=== PATIENT | female | born 1945 | race Caucasian/White ===

== ENCOUNTER → 2016-09-30 | Outpatient (CLI) | payer BC ==
[~2016-09-30] MED LIST: ASPEC325 PO; ATOR-22 PO; DILT180C47 PO; FURO-85 PO; HYDR-5688 PO; LEVO75TA PO; LISI-729 PO; METF500T PO
--- NOTE | 2016-09-30 08:49 | DIAGNOSTIC IMAGING REPORT ---
CHEST 2 VIEWS ROUTINE CLINICAL HISTORY: Preoperative evaluation. COMPARISON STUDY: No previous studies for comparison. FINDINGS: Lung volumes are normal. Lungs are clear. No pneumothorax or pleural effusion is present. Pulmonary vascularity is normal. Cardiomediastinal silhouette is normal. A 1.3 cm peripherally calcified left upper quadrant abnormality is noted. IMPRESSION: 1. No acute cardiopulmonary findings. 2. 1.3 cm peripheral calcified abnormality within the left upper quadrant of the abdomen. This could reflect a small splenic artery aneurysm or calcified splenic lesion. Electronically signed by: Mariano Francois M.D. 09/30/2016 8:48 AM Dictated Date/Time: 09/30/2016 8:39 AM
[2016-09-30 09:36] LABS: BASO % 0.6 %; BASO ABS # 0.04 K/uL (0-0.2); COMPLETE YES; EOS % 2.5 %; HEMATOCRIT 37.5 % (37-47); IG% 0.1 %; LYMPH % 22.9 %; LYMPH ABS # 1.63 K/uL (1.2-3.4); MEAN CELL VOLUME 91.7 fL (80-100); MEAN CORPUSCULAR HEMOGLOBIN 30.8 pg (25-34); MEAN CORPUSCULAR HGB CONC 33.6 g/dl (32-36); MEAN PLATELET VOLUME 10.9 fL (7.4-10.4); MONO % 11.7 %; NEUT % 62.2 %; PLATELET COUNT 279 K/uL (130-400); RED BLOOD COUNT 4.09 M/uL (4.2-5.4); WHITE BLOOD COUNT 7.11 K/uL (4.8-10.8)
[2016-09-30 09:45] LABS: PARTIAL THROMBOPLASTIN RATIO 1.3; PROTHROMBIN TIME (PATIENT) 10.6 SECONDS (9.0-12.0)
[2016-09-30 09:49] LABS: BLOOD UREA NITROGEN 15 mg/dl (7-18); BUN/CREATININE RATIO 18.6 (10-20); CARBON DIOXIDE 26 mmol/L (21-32); CHLORIDE 106 mmol/L (98-107); CREATININE 0.81 mg/dl (0.60-1.20); GLUCOSE 137 mg/dl (70-99); POTASSIUM 4.3 mmol/L (3.5-5.1); SODIUM 137 mmol/L (136-145)
[2016-09-30 09:53] LABS: ESTIMATED AVERAGE GLUCOSE 137 mg/dl; HA1C FLAG Normal (Normal)
[2016-09-30 10:00] LABS: CHOLESTEROL 139 mg/dl (0-200); CHOLESTEROL/HDL RATIO 2.1; HDL CHOLESTEROL 67 mg/dl; LDL CHOLESTEROL CALCULATED 48 mg/dl; TRIGLYCERIDES 122 mg/dl (0-150); VERY LOW DENSITY LIPOPROT CALC 24 mg/dl
== END | disposition home or self-care (01) ==
LOC: C.LAB 07:58
PROVIDERS: ATTEND Orthopaedic Surgery
DX: S72.142D Displaced intertrochanteric fracture of left femur, subsequent encounter for closed fracture with routine healing (principal); X58.XXXA Exposure to other specified factors, initial encounter; E78.00 Pure hypercholesterolemia, unspecified; E88.81 Metabolic syndrome and other insulin resistance; E11.9 Type 2 diabetes mellitus without complications; I10 Essential (primary) hypertension; E03.9 Hypothyroidism, unspecified; Z01.818 Encounter for other preprocedural examination

== ENCOUNTER → 2016-10-13 | Outpatient (CLI) | payer BC ==
[~2016-10-13] MED LIST changes: +BACITRACIN 50000 UNIT VIAL ONE; +ORTHO JOINT ANESTHETIC ONE
[2016-10-13 12:12] LABS: URINE APPEARANCE CLEAR (CLEAR); URINE BILIRUBIN NEG (NEG); URINE COLOR YELLOW; URINE NITRITE NEG (NEG); URINE SPECIFIC GRAVITY 1.023 (1.000-1.030); UROBILINOGEN NEG (NEG)
[2016-10-13 12:23] LABS: MANUAL MICROSCOPIC REQUIRED? NO; REVIEW REQ? NO
== END | disposition home or self-care (01) ==
LOC: C.RAD 11:11
PROVIDERS: ATTEND Orthopaedic Surgery
DX: Z01.812 Encounter for preprocedural laboratory examination (principal); S72.142D Displaced intertrochanteric fracture of left femur, subsequent encounter for closed fracture with routine healing; X58.XXXD Exposure to other specified factors, subsequent encounter

== ENCOUNTER → 2016-10-18 | Outpatient (CLI) | payer BC ==
[~2016-10-18] MED LIST changes: -BACITRACIN 50000 UNIT VIAL ONE; -ORTHO JOINT ANESTHETIC ONE
== END | disposition home or self-care (01) ==
LOC: C.LABBC 09:27
PROVIDERS: ATTEND Orthopaedic Surgery
DX: S72.142K Displaced intertrochanteric fracture of left femur, subsequent encounter for closed fracture with nonunion (principal); X58.XXXS Exposure to other specified factors, sequela

== ENCOUNTER 2016-10-22 10:34 | Inpatient (IN) | payer BC, OTHER ==
[2016-10-20 07:35] VITALS: BMI 25.0
--- NOTE | 2016-10-21 20:59 | HISTORY & PHYSICAL EXAMINATION ---
DATE OF ADMISSION: 10/22/2016 HISTORY AND PHYSICAL ADMISSION NOTE CHIEF COMPLAINT: Failed intramedullary nail fixation of the left hip. HISTORY OF PRESENT ILLNESS: Juany is a pleasant 71-year-old female who fell off a horse fell down at [place] in June. She underwent an intramedullary nail fixation of her left hip while in [place]. She came back to [place] for followup and unfortunately, her hip is not doing well. 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 She has been very painful and is having difficulty ambulating. She has elected to proceed with an IM nail removal and conversion to a hemiarthroplasty. PAST MEDICAL HISTORY: Significant for diabetes, hyperlipidemia, hypertension and hypothyroidism. MEDICATIONS: Include lisinopril, atorvastatin, diltiazem, Lasix, Synthroid, and metformin. ALLERGIES: None. FAMILY HISTORY: Noncontributory. SOCIAL HISTORY: She has a domestic partner and has 1-2 drinks a week and is very active. REVIEW OF SYSTEMS: She complains of left hip pain. All other pertinent review of systems is negative. PHYSICAL EXAMINATION: GENERAL: She is awake, alert and orient x3. She is in no apparent distress. She is very pleasant. HEENT: Pupils are equal, round and reactive to light. Extraocular movements intact. Oral mucosa is pink and moist. HEART: Regular rate per radial pulse. LUNGS: Lacie symmetrically bilaterally with no audible breath sounds. ABDOMEN: Soft, nontender, nondistended. MUSCULOSKELETAL: On physical examination of her left hip, she has a significantly shortened left leg compared to her contralateral side. She walks with an antalgic gait. She is stiff and painful with any range of motion of her hip. She is neurovascularly intact. X-RAYS: From the previous visit show a basicervical femoral neck fracture with intramedullary nail fixation with a lag screw and a derotational screw. Unfortunately, there has been collapse and nonunion at the fracture. There is also evidence of an old femoral shaft fracture that has been well healed. IMPRESSION: Failure intramedullary nail fixation of a left proximal femur. PLAN: We will proceed with a removal intramedullary nail and conversion to a left hip hemiarthroplasty. Postoperatively, she will be started on aspirin for DVT prophylaxis and admitted to the general orthopedic floors. Sed rate and CRP has already been done and ruled out infection. MTDD
[~2016-10-22] VITALS: Ht 152.4 cm; Wt 59.1 kg
[2016-10-22] VITALS (7 sets, daily range): BP systolic 104–148; BP diastolic 56–69; PULSE 52–66; TEMP 36.2–37.3; O2SAT 95–100; Ht 152.4 cm; Wt 59.1 kg
[~2016-10-22 10:34] MED LIST changes: +ACETAMINOPHEN 500 MG TAB PO SCH; -ASPEC325 PO; +ATROPINE SULFATE 0.1 MG/ML 5ML SYR IV PRN; +BUPIVACAINE 0.5 % 5 MG/1 ML PF 10ML VIAL ONE; +CEFAZOLIN 2000 MG/60 ML D5W 60 ML IV SCH; +EpHEDrine SULFATE INJ 50 MG/ML AMP IV PRN; +FAMOTIDINE 20 MG TAB PO SCH; +FENTANYL CITRATE INJ 50 MCG/1 ML 2 ML VIAL IV PRN; +GABAPENTIN 300 MG CAP PO SCH; -HYDR-5688 PO; +LACTATED RINGER'S 1000ML 1,000 ML IV SCH; +LACTATED RINGER'S 1000ML 500 ML IV ONE; +ONDANSETRON INJ 2 MG/ML 2 ML VIAL IV PRN; +ROPIVACAINE 5MG/ML 30 ML 150 MG, BUPIVACAINE/EPINEPHR 0.5% MPF 30 ML, KETOROLAC TROMETH... INFIL SCH; +TRANEXAMIC ACID INJ 1,000 MG in SODIUM CHLORIDE 0.9% 100ML 100 ML IV SCH
--- NOTE | 2016-10-22 11:00 | History & Physical Bridge Note ---
H&P Re-Evaluation Bridge Note: I have examined the patient, reviewed the History & Physical and in the interval since the performance of the History & Physical I have noted the following changes of clinical significance: No changes noted
[2016-10-22] MEDS ORDERED: MIDAZOLAM HCL 1 MG/ML 2ML VIAL ONE ×3 (12:36→16:08)
[2016-10-22] MEDS ORDERED: FENTANYL CITRATE INJ 50 MCG/1 ML 2 ML VIAL ONE ×2 (13:58→16:08)
[2016-10-22] MEDS ORDERED: PROPOFOL IV EMULSION 10 MG/ML 20 ML VIAL IV ONE (14:14)
[2016-10-22] MEDS ORDERED: EpHEDrine SULFATE 50MG/5ML SYR ONE (14:27)
--- NOTE | 2016-10-22 16:54 | [facility] Post Operative Brief Note ---
Immediate Operative Summary Operative Date Oct 22, 2016. Pre-Operative Diagnosis failure intramedullary nail fixation of a left proximal femur Post-Operative Diagnosis failure intramedullary nail fixation of a left proximal femur Procedure(s) Performed Removal Left Femoral Intramedullary Nail Conversion to Left Hip Bipolar Hemiarthroplasty Surgeon Dr. Mahad Turpin Sugar Cane Planter Surgeon(s) Jack Barth PA-C Estimated Blood Loss 250mL Findings as above Specimens B. Left Femoral Head Complication(s) None Disposition Recovery Room / PACU
[2016-10-22] MEDS ORDERED: METOCLOPRAMIDE HCL INJ 5 MG/ML 2 ML VIAL IV PRN (17:00)
[2016-10-22] MEDS ORDERED: MAGNESIUM HYDROXIDE SUSP 30 ML UDC PO PRN (17:00)
[2016-10-22] MEDS ORDERED: FUROSEMIDE 20 MG TAB PO PRN (17:00)
[2016-10-22] MEDS ORDERED: SOD PHOSPHATE/SOD BIPHOSPHATE ENEMA 132 ML BTL PR PRN (17:00)
[2016-10-22] MEDS ORDERED: BISACODYL 10 MG SUPP PR PRN (17:00)
[2016-10-22] MEDS ORDERED: MoRPHine SULFATE 2 MG/ML CARP IV PRN (17:00)
[2016-10-22] MEDS ORDERED: ONDANSETRON INJ 2 MG/ML 2 ML VIAL IV PRN (17:00)
--- NOTE | 2016-10-22 17:15 | Anesthesiology Progress Note ---
Anesthesia Post Op Note Date & Time Oct 22, 2016 at 17:15 Vital Signs Pain Intensity: 0 Vital Signs Past 12 Hours Date Time Temp Pulse Resp B/P (MAP) Pulse Ox O2 Delivery O2 Flow Rate FiO2 10/22/16 11:01 36.5 63 18 148/68 95 Room Air Notes Mental Status: alert / awake / arousable, participated in evaluation Pt Amnestic to Procedure: Yes Nausea / Vomiting: adequately controlled Pain: adequately controlled Airway Patency, RR, SpO2: stable & adequate BP & HR: stable & adequate Hydration State: stable & adequate Neuraxial Anesthesia: was administered, sensory block is resolving Anesthetic Complications: no major complications apparent
--- NOTE | 2016-10-22 17:26 | OPERATIVE REPORT ---
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 POSTOPERATIVE DIAGNOSIS: Same. PROCEDURE: Removal intramedullary nail fixation and conversion to left hip hemiarthroplasty. SURGEON: Dr. Mahad Turpin. RN NEONATAL: Kolby Barth PA-C, whose assistance was necessary for positioning of the leg and helping with instrumentation. ANESTHESIA: Spinal with sedation. COMPLICATIONS: None. CONDITION: Stable to PACU. IMPLANTS USED: I used a [employer] size 13 x 250 long femoral stem with a 10 mm calcar replacing component. This is a size 45 bipolar cup. The stem was cemented with Palacos-G cement. INDICATIONS FOR PROCEDURE: Juany is a pleasant 71-year-old female who sustained a left proximal femur fracture while in [place] about 4 months ago. She was fixed with intramedullary nail fixation derotational screw. Unfortunately, she went on to nonunion and there was collapse of the femoral head. She was unable to ambulate and elected to proceed with hardware removal and conversion to a hip hemiarthroplasty. OPERATION AND FINDINGS: On 10/22/2016, she arrived at [facility] for the above procedure. She was seen in the preoperative holding area and the operative extremity was identified and signed. She was given a preoperative antibiotic and a spinal anesthetic. She was taken back to the operating room, laid on the table in supine position and put under basic sedation. She was then put in the lateral decubitus position. The left hip was prepped and draped in sterile fashion. Time-out was done and the patient and operative extremity was properly identified. An anterior lateral approach was used. The old incisions from the IM nail fixation were incorporated into the new incision. Dissection was taken down to the fascia and the lateral hip was exposed. The anterior third of the abductors were resected off the greater trochanter and the capsule was excised. The femur was dislocated. The femur was then reduced and the lag screw and derotational screw were removed. Two small incisions were made distally and 2 distal locking screws were removed. The IM nail was then slid out in an antegrade fashion. The femoral head was then easily removed. The acetabulum was exposed and time was spent doing a complete circumferential labral release and ensuring that the acetabulum was cleaned out. I did not see any damage or signs of arthritis within the acetabulum. At this point, we decided to proceed with a hemiarthroplasty. The proximal femur was better exposed. There was bone loss all the way down to the level of the calcar. Once the proximal femur was cleaned up, sequential reaming up to a size 13 reamer was done. To get past a previous midshaft femur fracture, I decided to go with a 250 mm long stem. A trial stem was placed with a +10 calcar. A +3.5 neck was placed. The hip was then reduced. Fluoroscopy was used and I was happy with the leg lengths and the position of the stem and the implants. The hip was then dislocated and a final stem was then cemented into place. A 45 bipolar cup with a +3.5 neck was then impacted into place. The hip was then reduced, brought through a full range of motion and felt to be stable. The wound was then irrigated and surrounding soft tissues were injected with an orthopedic pain control cocktail. The abductors were then tenodesed back to the greater trochanter with transosseous FiberWire sutures and [id number] sutures. Two drains were placed. The fascia was closed with #1 PDS suture. Skin was closed with 2-0 Vicryl and 3-0 V-Loc and corina. She was placed in a soft dressing and taken to the postanesthesia care unit in stable condition. She tolerated the procedure well. I attest to the content of the Intraoperative Record and any orders documented therein. Any exception s are noted below.
--- NOTE | 2016-10-22 17:49 | DIAGNOSTIC IMAGING REPORT ---
LEFT FEMUR 2 VIEWS ROUTINE CLINICAL HISTORY: Postop examination status post a long stem hip arthroplasty COMPARISON: Outside radiograph dated 09/22/2016 DISCUSSION: There is been interval removal of the femoral neck nail is an interlocking medullary bernadine, and placement of a long stem bipolar left hip arthroplasty. There are old posttraumatic deformities of the femur. The proximal of the 2 distal screws sites has been filled with cement. Extruded cement extends into the lateral soft tissues. There are overlying skin corina and surgical drains. No acute fractures or dislocations are visualized. IMPRESSION: Old posttraumatic changes. Interval placement of a long stem bipolar left hip arthroplasty. Electronically signed by: Mohit Buck M.D. 10/22/2016 5:47 PM Dictated Date/Time: 10/22/2016 5:44 PM
--- NOTE | 2016-10-22 17:51 | DIAGNOSTIC IMAGING REPORT ---
PELVIS 1 OR 2 VIEW ROUTINE CLINICAL HISTORY: Postop examination COMPARISON STUDY: Outside radiograph dated 09/22/2016 FINDINGS: There has been interval removal of the femoral neck nails and interlocking intramedullary bernadine. There is been placement of a bipolar longstem left hip arthroplasty. Old posttraumatic deformity involves the femur. There is air within the soft tissues consistent with recent surgery. There is no dislocation. Overlying skin corina and surgical drains are evident IMPRESSION: Long stem bipolar left hip arthroplasty. Electronically signed by: Mohit Buck M.D. 10/22/2016 5:50 PM Dictated Date/Time: 10/22/2016 5:49 PM
[2016-10-22] MEDS: SODIUM CHLORIDE 0.9% 1000ML 1,000 ML IV SCH (19:13)
[2016-10-22] MEDS: CEFAZOLIN IV 2,000 MG in DEXTROSE 5% 50ML 50 ML IV SCH (21:08)
[2016-10-22] MEDS: ASPIRIN 325 MG ECTAB PO SCH (21:11)
[2016-10-22] MEDS: DOCUSATE SODIUM 100 MG CAP PO SCH (21:12)
[2016-10-22] MEDS: SENNA 8.6 MG TAB PO SCH (21:12)
[2016-10-22] MEDS: ACETAMINOPHEN IV 1,000 MG in EMPTY BAG 0 ML IV SCH (22:02)
[2016-10-22] MEDS: KETOROLAC TROMETHAMINE 15 MG/ML VIAL IV. SCH (22:02)
[2016-10-23] VITALS (7 sets, daily range): BP systolic 94–127; BP diastolic 53–67; PULSE 53–69; TEMP 36.4–36.7; O2SAT 97–98
[2016-10-23] MEDS: OXYCODONE HCL IR 5 MG TAB (IMMEDIATE RELEASE) PO PRN ×2 (00:46→11:44)
[2016-10-23] MEDS: SODIUM CHLORIDE 0.9% 1000ML 1,000 ML IV SCH ×2 (03:03→12:43)
[2016-10-23] MEDS: CEFAZOLIN IV 2,000 MG in DEXTROSE 5% 50ML 50 ML IV SCH (04:25)
[2016-10-23] MEDS: KETOROLAC TROMETHAMINE 15 MG/ML VIAL IV. SCH ×4 (04:25→23:03)
[2016-10-23] MEDS: ACETAMINOPHEN IV 1,000 MG in EMPTY BAG 0 ML IV SCH ×2 (06:13→14:17)
[2016-10-23] MEDS: LEVOTHYROXINE 75 MCG TAB PO SCH (06:13)
[2016-10-23 06:15] LABS: BASO % 0.1 %; HEMATOCRIT 29.2 % (37-47); IG% 0.3 %; LYMPH % 6.5 %; MEAN CELL VOLUME 90.4 fL (80-100); MEAN CORPUSCULAR HEMOGLOBIN 28.8 pg (25-34); MEAN CORPUSCULAR HGB CONC 31.8 g/dl (32-36); MEAN PLATELET VOLUME 9.7 fL (7.4-10.4); MONO % 5.4 %; NEUT % 87.7 %; PLATELET COUNT 252 K/uL (130-400); RED BLOOD COUNT 3.23 M/uL (4.2-5.4); WHITE BLOOD COUNT 10.72 K/uL (4.8-10.8)
[2016-10-23 06:16] LABS: BASO ABS # 0.01 K/uL (0-0.2); COMPLETE YES
[2016-10-23 06:53] LABS: BUN/CREATININE RATIO 18.6 (10-20); CALCIUM 8.5 mg/dl (8.5-10.1); CREATININE 0.78 mg/dl (0.60-1.20); POTASSIUM 4.4 mmol/L (3.5-5.1)
--- NOTE | 2016-10-23 08:49 | Discharge Instructions ---
Discharge Instructions Date of Service Oct 23, 2016. Admission Reason for Admission: Left Hip Closed Intertrochanteric Fracture Discharge Discharge Diagnosis / Problem: s/p Left Hip Revision To Hemiarthroplasty Discharge Goals Goal(s): Decrease discomfort, Improve function Activity Recommendations Activity Limitations: as noted below . Instructions / Follow-Up Instructions / Follow-Up Activity and Therapy Recommendations: * If you are using [facility] then Physical Therapy will be provided until they feel you are ready to start Outpatient Physical Therapy. If you are not using a Home Health agency then Outpatient Physical Therapy should start about 3-5 days from your day of surgery. Therapy will last about 3-6 weeks * You were shown a series of exercises in the hospital. Do these exercises three times each day including the exercises you were shown in physical therapy. * Get up and walk several times each day.~ For the first four weeks, try not to stand or walk for more than one hour at a time. If you do stand or walk for more than one hour, you will not hurt anything, but your leg will likely swell.~ ~ * As you feel comfortable, you may change from the walker or crutches to a cane and~then to independent walking. Medications: * Narcotic You will likely be sent home from the hospital with a prescription for the narcotic pain medication that worked best throughout your stay. * Aspirin Most patients will be required to take Aspirin 325mg twice a day for 6 weeks after surgery. This is obtained [id number] and a prescription is not necessary. * Other medications may be prescribed for specific circumstances. If you have any questions, please call the office at . * Resume previous home medications unless otherwise instructed TEDs/Elastic Stockings: The white elastic stockings help limit swelling and prevent blood clots from forming in your legs. The more you wear them, the more they work. Wear them for six weeks. Showering: You may shower 5 days from the day of surgery. Let the soapy shower water run over the corina. Do not scrub or soak the incision. Things To Watch For: * Drainage from the incision site that occurs more than one week after your surgery. * Increased redness at the incision site. * Fever above 102 degrees Fahrenheit. * Unusual chest pain or shortness of breath. * Call [facility] at with any of the above problems Follow-Up Visit: Follow-up with Dr. Turpin 2-3 weeks after your day of surgery. An appointment was probably scheduled when you signed-up for surgery in the office. If you have any questions call Office Instructions: More detailed instructions as well as Frequently Asked Questions were provided in a folder by our office when you signed-up for surgery. Please review these instructions when you get home. If you have any further questions or concerns, please feel free to call the office at [phone] Current Hospital Diet Patient's current hospital diet: Diabetes Type 2 Diet Discharge Diet Recommended Diet: Diabetes Type 2 Diet Procedures Procedures Performed: Removal Left Femoral Intramedullary Nail Conversion to Left Hip Bipolar Hemiarthroplasty Pending Studies Studies pending at discharge: no Laboratory Results Hemoglobin A1c Test 09/30/16 08:14 Range/Units Estimated Average Glucose 137 mg/dl Hemoglobin A1c 6.4 H 4.5-5.6 % Lipid Panel Test 09/30/16 08:14 Range/Units Triglycerides Level 122 0-150 mg/dl Cholesterol Level 139 0-200 mg/dl HDL Cholesterol 67 mg/dl Cholesterol/HDL Ratio 2.1 LDL Cholesterol, Calculated 48 mg/dl Medical Emergencies . Who to Call and When: Medical Emergencies: If at any time you feel your situation is an emergency, please call 911 immediately. . Non-Emergent Contact Non-Emergency issues call your: Surgeon Call Non-Emergent contact if: wound has increased drainage, wound has increased redness . "Provider Documentation" section prepared by Mahad Turpin. . VTE Core Measure Inpt VTE Proph given/why not?: Other Anticoagulation (Aspirin 325 twice a day for 6 weeks)
--- NOTE | 2016-10-23 09:23 | PROGRESS NOTE ---
DATE: 10/23/2016 CHIEF COMPLAINT: Status post removal of hardware and conversion to left hip hemiarthroplasty, postop day #1. PROGRESS: Juany was seen and examined at bedside today. Overall, she is doing very well. She has been up and ambulating to the bathroom. Her pain is controlled in her hip. She has no complaints. PHYSICAL EXAMINATION: Her leg lengths are equal. She has active dorsiflexion and plantarflexion of her left ankle. The dressing is clean and dry. Most of her pain is located where the distal screws were removed. LABORATORY DATA: She has an H&H today of 9.3 and 29.2. Her glucose is 171. Her vital signs are stable on room air. She is voiding on her own. X-rays postoperatively of the left hip show the leg lengths to be equal and the prosthesis to be in near anatomic alignment. There is a little bit of cement extraction where the screws were removed laterally in the distal aspect of the femur. I did discuss this with her at bedside. IMPRESSION: Status post conversion left hip hemiarthroplasty, postoperative day #1. PLAN: At this point, she is doing fairly well. She can be up and ambulating with physical therapy. Tomorrow, the nurses can change the dressing, pull the drain and will likely discharge her to home.
[2016-10-23] MEDS: METFORMIN HCL 500 MG TAB PO SCH ×2 (09:36→19:13)
[2016-10-23] MEDS: LISINOPRIL 5 MG TAB PO SCH (09:37)
[2016-10-23] MEDS: PANTOprazole SOD 40 MG TAB PO SCH (09:37)
[2016-10-23] MEDS: DOCUSATE SODIUM 100 MG CAP PO SCH ×2 (09:38→21:01)
[2016-10-23] MEDS: DILTIAZEM HCL 180 MG CAPCR PO SCH (09:38)
[2016-10-23] MEDS: ASPIRIN 325 MG ECTAB PO SCH ×2 (09:38→21:01)
[2016-10-23] MEDS: MULTIVITAMIN TAB PO SCH (09:39)
[2016-10-23] MEDS: ATORVASTATIN 20 MG TAB PO SCH (09:39)
[2016-10-23] MEDS: SENNA 8.6 MG TAB PO SCH (21:01)
[2016-10-24] MEDS: OXYCODONE HCL IR 5 MG TAB (IMMEDIATE RELEASE) PO PRN (02:53)
[2016-10-24] MEDS: KETOROLAC TROMETHAMINE 15 MG/ML VIAL IV. SCH ×2 (03:56→09:09)
[2016-10-24] MEDS: LEVOTHYROXINE 75 MCG TAB PO SCH (05:42)
[2016-10-24 07:48] VITALS: BP 126/66; PULSE 60; TEMP 36.8; O2SAT 98
[2016-10-24 09:00] VITALS: PULSE 85; O2SAT 98
[2016-10-24] MEDS: METFORMIN HCL 500 MG TAB PO SCH (09:08)
[2016-10-24] MEDS: DOCUSATE SODIUM 100 MG CAP PO SCH (09:08)
[2016-10-24] MEDS: ATORVASTATIN 20 MG TAB PO SCH (09:08)
[2016-10-24] MEDS: MULTIVITAMIN TAB PO SCH (09:08)
[2016-10-24] MEDS: DILTIAZEM HCL 180 MG CAPCR PO SCH (09:08)
[2016-10-24] MEDS: PANTOprazole SOD 40 MG TAB PO SCH (09:08)
[2016-10-24] MEDS: ASPIRIN 325 MG ECTAB PO SCH (09:08)
[2016-10-24] MEDS: LISINOPRIL 5 MG TAB PO SCH (09:09)
[2016-10-24] MEDS ORDERED: HYDR-5688 PO (09:11)
[2016-10-24] MEDS ORDERED: ASPEC325 PO (09:11)
--- NOTE | 2016-10-24 09:47 | PROGRESS NOTE ---
DATE: 10/24/2016 CHIEF COMPLAINT: Status post revision left hip to hemiarthroplasty with removal of hardware. PROGRESS: Juany was seen and examined at bedside today. Overall, she is doing very well. She was able to participate well yesterday with physical therapy. Her pain is well controlled. She has no complaints. PHYSICAL EXAMINATION: LEFT HIP: The dressings are clean and dry and the drain has been pulled. Her leg lengths are equal. She seems to be very comfortable. IMPRESSION: Status post removal of IM nail and conversion to left hip hemiarthroplasty, postop day #2. PLAN: At this point, she is doing extremely well. She is participating well with physical therapy. Her pain is controlled and we will discharge her home with the [facility] health later today.
[2016-10-24 10:19] VITALS: BP 126/66; PULSE 85; TEMP 36.8; O2SAT 98
--- NOTE | 2016-10-24 11:35 | DISCHARGE SUMMARY ---
DISCHARGE DIAGNOSIS: Failed intramedullary nail fixation of the left hip. PROCEDURE: Removal of intramedullary nail and conversion to calcar replacing left hip hemiarthroplasty by Dr. Mahad Turpin on 10/22/2016. DISCHARGE INSTRUCTIONS: 1. Aspirin 325 mg twice a day for 6 weeks. 2. Tyler 5/325 every 6 hours as needed for pain. 3. Lipitor 20 mg daily. 4. Diltiazem 180 mg daily. 5. Lasix 20 mg daily. 6. Synthroid 75 mcg daily. 7. Zestril 5 mg daily. 8. Glucophage 500 mg twice a day. 9. Weightbear as tolerated. 10. Follow up with Dr. Turpin in 2 weeks. 11. Call the office of Dr. Turpin with any questions or concerns. HOSPITAL COURSE: Juany a 71-year-old female who fell while down in [place] about 4 months ago. She sustained a very low femoral neck fracture. She was treated with intramedullary nail fixation. She followed up with [facility] in [place], but unfortunately, the femoral head continued to collapse. She was unable to ambulate and elected to proceed with removal of the hardware and conversion hip hemiarthroplasty. On 10/22/2016, she arrived at [facility] and underwent the conversion to hemiarthroplasty without complications. Postoperatively, she was started on aspirin for DVT prophylaxis and discharged to the general orthopedic floors. Her hospital course was uneventful. On postop day #1, her H&H was stable at 9.3 and 29.2. She was up and ambulating well with physical therapy and her pain was controlled. On postop day #2, the dressing was changed and the drain was pulled. She continued to work well with physical therapy and she was subsequently discharged to home with the [facility] and the above instructions.
== END 2016-10-24 11:02 | disposition home health service (06) | DRG 470 ==
LOC: C.ACU 10:34 → C.3E 11:00 → UNDOADMIN 17:02 → C.3E 17:02 → ENRESERV 17:39
PROVIDERS: ADMIT Orthopaedic Surgery; ATTEND Orthopaedic Surgery
PROC: 0QP704Z Removal of Internal Fixation Device from Left Upper Femur, Open Approach (ICD-10-PCS; principal; 2016-10-22 13:00)
PROC: 0SRB0J9 Replacement of Left Hip Joint with Synthetic Substitute, Cemented, Open Approach (ICD-10-PCS; principal; 2016-10-22 13:00)
DX: T84.195A Other mechanical complication of internal fixation device of left femur, initial encounter (principal); S72.002K Fracture of unspecified part of neck of left femur, subsequent encounter for closed fracture with nonunion; E11.9 Type 2 diabetes mellitus without complications; I10 Essential (primary) hypertension; E03.9 Hypothyroidism, unspecified; E78.5 Hyperlipidemia, unspecified; Z79.899 Other long term (current) drug therapy; Z79.84 Long term (current) use of oral hypoglycemic drugs; V80.010A Animal-rider injured by fall from or being thrown from horse in noncollision accident, initial encounter; Y99.8 Other external cause status; Y83.1 Surgical operation with implant of artificial internal device as the cause of abnormal reaction of the patient, or of later complication, without mention of misadventure at the time of the procedure

== ENCOUNTER → 2017-01-03 | Outpatient (CLI) | payer BC, OTHER ==
[~2017-01-03] MED LIST changes: -ACETAMINOPHEN 500 MG TAB PO SCH; +ASPEC325 PO; -ATROPINE SULFATE 0.1 MG/ML 5ML SYR IV PRN; -BUPIVACAINE 0.5 % 5 MG/1 ML PF 10ML VIAL ONE; -CEFAZOLIN 2000 MG/60 ML D5W 60 ML IV SCH; -EpHEDrine SULFATE INJ 50 MG/ML AMP IV PRN; -FAMOTIDINE 20 MG TAB PO SCH; -FENTANYL CITRATE INJ 50 MCG/1 ML 2 ML VIAL IV PRN; -GABAPENTIN 300 MG CAP PO SCH; +HYDR-5688 PO; -LACTATED RINGER'S 1000ML 1,000 ML IV SCH; -LACTATED RINGER'S 1000ML 500 ML IV ONE; -ONDANSETRON INJ 2 MG/ML 2 ML VIAL IV PRN; -ROPIVACAINE 5MG/ML 30 ML 150 MG, BUPIVACAINE/EPINEPHR 0.5% MPF 30 ML, KETOROLAC TROMETH... INFIL SCH; -TRANEXAMIC ACID INJ 1,000 MG in SODIUM CHLORIDE 0.9% 100ML 100 ML IV SCH
[2017-01-03 12:11] LABS: BASO % 0.9 %; BASO ABS # 0.05 K/uL (0-0.2); COMPLETE YES; EOS % 6.1 %; IG% 0.2 %; LYMPH % 32.4 %; MEAN CELL VOLUME 93.8 fL (80-100); MEAN CORPUSCULAR HEMOGLOBIN 29.6 pg (25-34); MEAN CORPUSCULAR HGB CONC 31.5 g/dl (32-36); MEAN PLATELET VOLUME 10.3 fL (7.4-10.4); MONO % 9.6 %; NEUT % 50.8 %; PLATELET COUNT 329 K/uL (130-400); RED BLOOD COUNT 4.16 M/uL (4.2-5.4); WHITE BLOOD COUNT 5.86 K/uL (4.8-10.8)
[2017-01-03 12:31] LABS: ALT/SGPT 19 U/L (12-78); AST/SGOT 15 U/L (15-37); BLOOD UREA NITROGEN 10 mg/dl (7-18); BUN/CREATININE RATIO 14.7 (10-20); CARBON DIOXIDE 23 mmol/L (21-32); CHLORIDE 108 mmol/L (98-107); CREATININE 0.67 mg/dl (0.60-1.20); GLUCOSE 115 mg/dl (70-99); MAGNESIUM 1.8 mg/dl (1.8-2.4); POTASSIUM 4.3 mmol/L (3.5-5.1); SODIUM 140 mmol/L (136-145)
[2017-01-03 12:42] LABS: ALB/GLOB RATIO 1.1 (0.9-2); ALKALINE PHOSPHATASE 86 U/L (45-117)
[2017-01-03 13:44] LABS: ESTIMATED AVERAGE GLUCOSE 120 mg/dl; HA1C FLAG Normal (Normal)
[2017-01-03 18:11] LABS: RATIO 6.8 mcg/mg (0-30.0)
== END | disposition home or self-care (01) ==
LOC: C.LABBFT 08:50
PROVIDERS: ATTEND Nurse Practitioner Family
DX: E78.00 Pure hypercholesterolemia, unspecified (principal); E88.81 Metabolic syndrome and other insulin resistance; E11.9 Type 2 diabetes mellitus without complications; E30.9 Disorder of puberty, unspecified; S72.022A Displaced fracture of epiphysis (separation) (upper) of left femur, initial encounter for closed fracture; X58.XXXA Exposure to other specified factors, initial encounter; E83.42 Hypomagnesemia

== ENCOUNTER → 2017-01-17 | Outpatient (CLI) | payer BC, OTHER ==
[~2017-01-17] MED LIST changes: +ASPI325T39 PO; +DILT-113 PO
[2017-01-17 11:03] LABS: BASO % 1.1 %; BASO ABS # 0.07 K/uL (0-0.2); COMPLETE YES; EOS % 5.4 %; HEMATOCRIT 38.8 % (37-47); IG% 0.3 %; LYMPH ABS # 1.68 K/uL (1.2-3.4); MEAN CORPUSCULAR HEMOGLOBIN 30.2 pg (25-34); MEAN CORPUSCULAR HGB CONC 32.5 g/dl (32-36); MEAN PLATELET VOLUME 10.9 fL (7.4-10.4); MONO % 11.3 %; NEUT % 55.9 %; PLATELET COUNT 322 K/uL (130-400); RED BLOOD COUNT 4.17 M/uL (4.2-5.4); WHITE BLOOD COUNT 6.47 K/uL (4.8-10.8)
[2017-01-17 11:08] LABS: BLOOD UREA NITROGEN 13 mg/dl (7-18); BUN/CREATININE RATIO 18.9 (10-20); CALCIUM 9.1 mg/dl (8.5-10.1); CARBON DIOXIDE 26 mmol/L (21-32); CHLORIDE 106 mmol/L (98-107); CREATININE 0.68 mg/dl (0.60-1.20); GLUCOSE 111 mg/dl (70-99); POTASSIUM 4.7 mmol/L (3.5-5.1); SODIUM 137 mmol/L (136-145)
== END | disposition home or self-care (01) ==
LOC: C.LABBC 08:58
PROVIDERS: ATTEND Orthopaedic Surgery
DX: Z01.812 Encounter for preprocedural laboratory examination (principal); S70.2 Other superficial injuries of hip; X58.XXXD Exposure to other specified factors, subsequent encounter

== ENCOUNTER → 2017-01-27 | Day surgery (SDC) | payer BC, OTHER ==
[2017-01-18 08:54] VITALS: Ht 152.4 cm; Wt 59.1 kg
[~2017-01-27] VITALS: Ht 152.4 cm; Wt 59.1 kg
[~2017-01-27] MED LIST changes: -ASPEC325 PO; +ATROPINE SULFATE 0.1 MG/ML 5ML SYR IV PRN; +CEFAZOLIN 2000MG IV PUSH 10 ML IV SCH; +DEXAMETHASONE SOD INJ 4 MG/ML VIAL ONE; -DILT180C47 PO; +EpHEDrine SULFATE INJ 50 MG/ML AMP IV PRN; +FENTANYL CITRATE INJ 50 MCG/1 ML 2 ML VIAL IV PRN; +FENTANYL CITRATE INJ 50 MCG/1 ML 2 ML VIAL ONE; +HYDROCODONE/ACETAMOPHEN 5/325MG TAB ONE; +HYDROCODONE/ACETAMOPHEN 5/325MG TAB PO PRN; +LACTATED RINGER'S 1000ML 1,000 ML IV SCH; +LIDOCAINE HCL 2% 2 ML VIAL (20MG/ML) ONE; +LIDOCAINE HCL 2% LOCAL 20 ML VIAL ONE; +MIDAZOLAM HCL 1 MG/ML 2ML VIAL ONE; +ONDANSETRON INJ 2 MG/ML 2 ML VIAL IV PRN; +ONDANSETRON INJ 2 MG/ML 2 ML VIAL ONE; +PROPOFOL IV EMULSION 10 MG/ML 20 ML VIAL IV ONE; +SODIUM CHLORIDE 0.9% 1000ML 1,000 ML IV SCH
--- NOTE | 2017-01-27 07:27 | [facility] Post Operative Brief Note ---
Immediate Operative Summary Operative Date Jan 27, 2017. Pre-Operative Diagnosis Left Lower Limb Superficial Foreign Body Post-Operative Diagnosis same Procedure(s) Performed Left Distal Femur Foreign Body Excision Surgeon Dr Turpin Catering Attendant Surgeon(s) LIDIA Choe Estimated Blood Loss 5ml Findings as above Specimens none Complication(s) None Disposition Recovery Room / PACU
--- NOTE | 2017-01-27 07:39 | Discharge Instructions-SurgCtr ---
Discharge Instructions Date of Service Jan 27, 2017. Visit Reason for Visit: Left Lower Limb Superficial Foreign Body Discharge Discharge Diagnosis / Problem: SAME ABOVE Discharge Goals Goal(s): Decrease discomfort, Improve function Activity Recommendations Activity Limitations: as noted below Lifting Limitations: gradually increase as tolerated Exercise/Sports Limitations: gradually increase as tolerated Shower/Bathe: tomorrow Anesthesia . Post Anesthesia Instructions: If you have had General Anesthesia or IV Sedation: * Do not drive today. * Resume driving when surgeon permits. * Do not make important decisions or sign legal documents today. * Call surgeon for: 1. Temperature elevations greater than 101 degrees F. 2. Uncontrollable pain. 3. Excessive bleeding. 4. Persistent nausea and vomiting. 5. Medication intolerance (nausea, vomiting or rash). * For nausea and vomiting use only clear liquids such as: tea, soda, bouillon until nausea subsides, then gradually increase diet as tolerated. * If you have any concerns or questions, call your surgeon's office. If physician is unavailable and it is an emergency, call 911 or go to the nearest emergency room. . Instructions / Follow-Up Instructions / Follow-Up MEDICATIONS: * Resume previous medications unless instructed otherwise by your surgeon. * Always take pain medication on a full stomach or with food to avoid upset stomach. * Do not drink alcohol or drive while taking narcotics. * Ibuprofen or Tylenol may be taken if narcotic not needed. SPECIAL CARE INSTRUCTIONS: __ None _X_ Keep extremity elevated and iced x 48 hours; apply ice 20-30 minutes 8-10 times/day. May remove at night. __ Crutches __ May discard when able __ Brace/Post-op shoe __ 24 hrs/day __ Remove at night _X_ Dressing __ Maintain until seen in office, may shower with plastic over site _X_ Remove dressings in 24-48 hours and then may shower _X_ Cover incisions with band-aids after showering __ Do not remove steri-strips Call physician if chills or temperature rises above 102 degrees or pain unrelieved by prescribed pain medications. Office [phone] Diet Recommendations Home Diet: no limitations Fluid Restriction: None Procedures Procedures Performed: Left Distal Femur Foreign Body Excision Pending Studies Studies pending at discharge: no Medical Emergencies . Who to Call and When: Medical Emergencies: If at any time you feel your situation is an emergency, please call 911 immediately. . Non-Emergent Contact Non-Emergency issues call your: Primary Care Provider Call Non-Emergent contact if: you have a fever, temperature is above 101.5 . . "Provider Documentation" section prepared by Jack Barth. .
[2017-01-27 08:17] VITALS: TEMP 36.4
--- NOTE | 2017-01-27 08:24 | OPERATIVE REPORT ---
DATE OF OPERATION: 01/27/2017 PREOPERATIVE DIAGNOSIS: Foreign body with cement extravasation of the left distal femur. POSTOPERATIVE DIAGNOSIS: Same. PROCEDURE: Open left foreign body removal with removal of the cement extravasation. SURGEON: Dr. Mahad Turpin. COMMUNICATION COORDINATOR: Kolby Barth PA-C, whose assistance was necessary for retraction and closure. ANESTHESIA: General. COMPLICATIONS: None. CONDITION: Stable to PACU. INDICATIONS: Juany is a pleasant 71-year-old female who underwent an IM nail treatment for a proximal femur fracture in [place] 6 months ago. Unfortunately, the fracture fixation failed. I then took the long nail out and did a long stem cemented hip hemiarthroplasty. She has done extremely well with her hip. Unfortunately, during the procedure, there was cement extravasation out of the distal locking hole from the bernadine removal. It was extravasated into her lateral IT band. It was causing significant pain and she elected to undergo cement removal. DESCRIPTION OF PROCEDURE: On 01/27/2017, she arrived at [facility] for the above procedure. She was seen in the preoperative holding area and the operative extremity was identified and signed. She was given a preoperative antibiotic, taken back to the operating room, laid on the table in supine position and put under general anesthesia. The left knee was then prepped and draped in sterile fashion. Time-out was done and the patient's operative extremity was properly identified. A longitudinal incision was made over the foreign body area. Dissection was taken down through the IT band and the cement was easily identified. A Anabella was used to pull the cement out of the area. Fluoroscopy was used to ensure complete cement removal. The wound was then irrigated. The fascia was closed with #1 PDS suture. Skin was closed with 3-0 Vicryl and nylon suture. She was then placed in a soft dressing and taken to the postanesthesia care unit in stable condition. She tolerated the procedure well. I attest to the content of the Intraoperative Record and any orders documented therein. Any exception s are noted below.
[2017-01-27 08:42] VITALS: BP 133/58; PULSE 51; O2SAT 99
--- NOTE | 2017-01-27 08:57 | Anesthesia Progress Nt - [facility] ---
Anesthesia Post Op Note Date & Time Jan 27, 2017 at 08:57 Vital Signs Pain Intensity: 5.0 Vital Signs Past 12 Hours Date Time Temp Pulse Resp B/P (MAP) Pulse Ox O2 Delivery O2 Flow Rate FiO2 01/27/17 08:42 51 16 133/58 (83) 99 Room Air 01/27/17 08:17 36.4 60 16 148/69 (95) 97 Room Air 01/27/17 08:07 36.4 52 16 135/65 96 Room Air 01/27/17 08:01 129/64 01/27/17 08:00 53 14 96 01/27/17 08:00 52 14 01/27/17 07:56 130/68 01/27/17 07:55 52 13 01/27/17 07:55 53 13 96 01/27/17 07:52 123/62 01/27/17 07:50 53 10 98 01/27/17 07:50 53 10 01/27/17 07:46 100/51 01/27/17 07:45 51 12 01/27/17 07:45 50 12 99 01/27/17 07:44 50 12 99 01/27/17 07:44 50 12 01/27/17 07:41 96/45 01/27/17 07:39 51 12 01/27/17 07:39 51 12 91/49 98 01/27/17 07:37 36.3 51 14 91/49 96 Mask 5 01/27/17 06:26 36.7 57 16 166/89 (114) 98 Room Air Notes Mental Status: alert / awake / arousable, participated in evaluation Pt Amnestic to Procedure: Yes Nausea / Vomiting: adequately controlled Pain: adequately controlled Airway Patency, RR, SpO2: stable & adequate BP & HR: stable & adequate Hydration State: stable & adequate Anesthetic Complications: no major complications apparent
== END | disposition home or self-care (01) ==
LOC: X.SURG 06:15
PROVIDERS: ATTEND Orthopaedic Surgery
DX: M79.5 Residual foreign body in soft tissue (principal); T84.195D Other mechanical complication of internal fixation device of left femur, subsequent encounter; M79.652 Pain in left thigh; E78.00 Pure hypercholesterolemia, unspecified; Z90.710 Acquired absence of both cervix and uterus; I10 Essential (primary) hypertension; Z96.649 Presence of unspecified artificial hip joint; Z98.49 Cataract extraction status, unspecified eye; F17.200 Nicotine dependence, unspecified, uncomplicated

== ENCOUNTER → 2017-05-02 | Outpatient (CLI) | payer BC ==
[~2017-05-02] MED LIST changes: -ATROPINE SULFATE 0.1 MG/ML 5ML SYR IV PRN; -CEFAZOLIN 2000MG IV PUSH 10 ML IV SCH; -DEXAMETHASONE SOD INJ 4 MG/ML VIAL ONE; -EpHEDrine SULFATE INJ 50 MG/ML AMP IV PRN; -FENTANYL CITRATE INJ 50 MCG/1 ML 2 ML VIAL IV PRN; -FENTANYL CITRATE INJ 50 MCG/1 ML 2 ML VIAL ONE; -HYDROCODONE/ACETAMOPHEN 5/325MG TAB ONE; -HYDROCODONE/ACETAMOPHEN 5/325MG TAB PO PRN; -LACTATED RINGER'S 1000ML 1,000 ML IV SCH; -LIDOCAINE HCL 2% 2 ML VIAL (20MG/ML) ONE; -LIDOCAINE HCL 2% LOCAL 20 ML VIAL ONE; -MIDAZOLAM HCL 1 MG/ML 2ML VIAL ONE; -ONDANSETRON INJ 2 MG/ML 2 ML VIAL IV PRN; -ONDANSETRON INJ 2 MG/ML 2 ML VIAL ONE; -PROPOFOL IV EMULSION 10 MG/ML 20 ML VIAL IV ONE; -SODIUM CHLORIDE 0.9% 1000ML 1,000 ML IV SCH
[2017-05-02 13:06] LABS: BASO % 0.7 %; BASO ABS # 0.04 K/uL (0-0.2); EOS % 6.6 %; HEMATOCRIT 40.3 % (37-47); IG# 0.02 K/uL (0.00-0.02); LYMPH ABS # 2.12 K/uL (1.2-3.4); MEAN CELL VOLUME 95.7 fL (80-100); MEAN CORPUSCULAR HEMOGLOBIN 30.9 pg (25-34); MEAN CORPUSCULAR HGB CONC 32.3 g/dl (32-36); MEAN PLATELET VOLUME 10.9 fL (7.4-10.4); MONO % 10.7 %; MONO ABS # 0.65 K/uL (0.11-0.59); NEUT % 46.7 %; NEUT ABS # 2.83 K/uL (1.4-6.5); PLATELET COUNT 259 K/uL (130-400); RED CELL DISTRIBUTION WIDTH CV 14.4 % (11.5-14.5); RED CELL DISTRIBUTION WIDTH SD 50.4 fL (36.4-46.3); WHITE BLOOD COUNT 6.06 K/uL (4.8-10.8)
[2017-05-02 13:49] LABS: T3 FREE 2.78 pg/ml (2.30-4.20)
[2017-05-02 14:08] LABS: HEMOGLOBIN A1C 6.3 % (4.5-5.6)
[2017-05-02 14:13] LABS: ALBUMIN 4.1 gm/dl (3.4-5.0); ALT/SGPT 22 U/L (12-78); BLOOD UREA NITROGEN 19 mg/dl (7-18); CALCIUM 9.5 mg/dl (8.5-10.1); CARBON DIOXIDE 27 mmol/L (21-32); CHOLESTEROL 167 mg/dl (0-200); CREATININE 0.85 mg/dl (0.60-1.20); GLUCOSE 127 mg/dl (70-99); POTASSIUM 4.8 mmol/L (3.5-5.1); SODIUM 140 mmol/L (136-145)
[2017-05-02 14:22] LABS: ALKALINE PHOSPHATASE 69 U/L (45-117); AST/SGOT 15 U/L (15-37); LDL CHOLESTEROL CALCULATED 69 mg/dl; TOTAL PROTEIN 7.5 gm/dl (6.4-8.2)
== END | disposition home or self-care (01) ==
LOC: C.LABBFT 07:46
PROVIDERS: ATTEND Nurse Practitioner Family
DX: E78.00 Pure hypercholesterolemia, unspecified (principal); M81.0 Age-related osteoporosis without current pathological fracture; E11.9 Type 2 diabetes mellitus without complications; E03.9 Hypothyroidism, unspecified; E88.81 Metabolic syndrome and other insulin resistance; I10 Essential (primary) hypertension

== ENCOUNTER → 2017-05-03 | Outpatient (CLI) | payer BC ==
--- NOTE | 2017-05-05 07:48 | MAMMOGRAPHY REPORT ---
BILATERAL DIGITAL SCREENING MAMMOGRAM TOMOSYNTHESIS WITH CAD: 05/03/2017 CLINICAL HISTORY: Routine screening examination. TECHNIQUE: Breast tomosynthesis in addition to standard 2D mammography was performed. Current study was also evaluated with a Computer Aided Detection (CAD) system. COMPARISON: Comparison is made to exams dated: 08/22/2015 mammogram, 08/09/2014 mammogram, 07/30/2013 ma mmogram, 07/27/2012 mammogram - [facility], 06/14/2007, and 06/25/2008. BREAST COMPOSITION: There are scattered areas of fibroglandular density in both breasts. FINDINGS: There are a few scattered benign rim calcifications in the breasts. No suspicious mass, ar chitectural distortion or cluster of microcalcifications is seen. IMPRESSION: ACR BI-RADS CATEGORY 1: NEGATIVE There is no mammographic evidence of malignancy. A 1 year screening mammogram is recommended. The pa tient will receive written notification of the results. Approximately 10% of breast cancers are not detected with mammography. A negative mammographic report should not delay biopsy if a clinically suggestive mass is present. Miranda Subramanian M.D. ay/:05/03/2017 20:20:02 Soil Conservation Technician: Lacey GUALLPA(Tre)(Killian), [facility] letter sent: Normal 1/2 BI-RADS Code: ACR BI-RADS Category 1: Negative
== END | disposition home or self-care (01) ==
LOC: C.MAMM 13:37
PROVIDERS: ATTEND Nurse Practitioner Family
DX: Z12.31 Encounter for screening mammogram for malignant neoplasm of breast (principal)

== ENCOUNTER → 2017-08-30 | Outpatient (CLI) | payer BC ==
[~2017-08-30] MED LIST changes: -HYDR-5688 PO
[2017-08-30 12:57] LABS: BASO % 1.1 %; BASO ABS # 0.06 K/uL (0-0.2); EOS % 5.7 %; HEMATOCRIT 38.1 % (37-47); HEMOGLOBIN 12.6 g/dL (12.0-16.0); IG# 0.01 K/uL (0.00-0.02); LYMPH % 37.2 %; LYMPH ABS # 1.94 K/uL (1.2-3.4); MEAN CELL VOLUME 92.9 fL (80-100); MEAN CORPUSCULAR HEMOGLOBIN 30.7 pg (25-34); MEAN CORPUSCULAR HGB CONC 33.1 g/dl (32-36); MONO % 10.2 %; MONO ABS # 0.53 K/uL (0.11-0.59); NEUT % 45.6 %; NEUT ABS # 2.38 K/uL (1.4-6.5); PLATELET COUNT 263 K/uL (130-400); RED CELL DISTRIBUTION WIDTH CV 13.2 % (11.5-14.5); RED CELL DISTRIBUTION WIDTH SD 44.7 fL (36.4-46.3); WHITE BLOOD COUNT 5.22 K/uL (4.8-10.8)
[2017-08-30 13:15] LABS: HEMOGLOBIN A1C 6.5 % (4.5-5.6)
[2017-08-30 13:38] LABS: CREATININE RANDOM URINE 60.8 mg/dl
[2017-08-30 14:04] LABS: ALBUMIN 4.2 gm/dl (3.4-5.0); ALKALINE PHOSPHATASE 66 U/L (45-117); ALT/SGPT 32 U/L (12-78); AST/SGOT 20 U/L (15-37); BLOOD UREA NITROGEN 11 mg/dl (7-18); CALCIUM 9.4 mg/dl (8.5-10.1); CARBON DIOXIDE 26 mmol/L (21-32); CHOLESTEROL 164 mg/dl (0-200); CREATININE 0.68 mg/dl (0.60-1.20); GLUCOSE 109 mg/dl (70-99); LDL CHOLESTEROL CALCULATED 80 mg/dl; POTASSIUM 4.5 mmol/L (3.5-5.1); SODIUM 141 mmol/L (136-145); TOTAL PROTEIN 7.4 gm/dl (6.4-8.2)
[2017-08-30 14:25] LABS: T3 FREE 2.68 pg/ml (2.30-4.20)
== END | disposition home or self-care (01) ==
LOC: C.LABBFT 08:01
PROVIDERS: ATTEND Nurse Practitioner Family
DX: E78.00 Pure hypercholesterolemia, unspecified (principal); E11.9 Type 2 diabetes mellitus without complications; I10 Essential (primary) hypertension; M81.0 Age-related osteoporosis without current pathological fracture; E03.9 Hypothyroidism, unspecified; E83.42 Hypomagnesemia